=== PATIENT | male | born 1980 | race Caucasian/White ===

== ENCOUNTER 2017-11-27 10:55 | Emergency (ER) | payer MEDICAID ==
[~2017-11-27] VITALS: Ht 182.9 cm; Wt 81.6 kg
[2017-11-27 11:00] VITALS: BP 116/65; Ht 182.9 cm; Wt 81.6 kg
== END 2017-11-27 12:13 | disposition home or self-care (01) ==
LOC: ED 10:55
DX: T25.232A Burn of second degree of left toe(s) (nail), initial encounter (principal); E11.40 Type 2 diabetes mellitus with diabetic neuropathy, unspecified
CPT/HCPCS: J0696